=== PATIENT | male | born 1945 | race Caucasian/White ===

== ENCOUNTER 2016-12-04 10:31 | Emergency (ER) | payer MEDICARE ==
[~2016-12-04] VITALS: Ht 182.9 cm; Wt 92.1 kg
[~2016-12-04 10:31] MED LIST: AZIT1PAC7 PO
[2016-12-04 11:39] LABS: BASO % 1 % (0-3); EOS % 4 % (0-3); HEMATOCRIT 43.1 % (39.0-53.0); HEMOGLOBIN 14.4 g/dL (13.0-17.5); LYMPH # 1.1 x10^3/uL (1.0-4.8); LYMPH % 14 % (24-48); MEAN CORPUSCULAR HEMOGLOBIN 32 pg (25-35); MEAN CORPUSCULAR HGB CONC 33 g/dL (31-37); MEAN CORPUSCULAR VOLUME 95 fL (79-100); MONO % 8 % (0-9); NEUT % 74 % (31-73); PLATELET COUNT 101 x10^3/uL (140-400); RED BLOOD COUNT 4.55 x10^6/uL (4.30-5.70); WHITE BLOOD COUNT 7.6 x10^3/uL (4.0-11.0)
--- NOTE | 2016-12-04 11:45 | PHYS DOC ---
Past Medical History Past Medical History: Diverticulitis, Hypertension, Hypothyroid, Other Additional Past Medical Histor: FATTY LIVER,ENLARGED SPLEEN,LOW PLATELETS Past Surgical History: Other Additional Past Surgical Histo: HEMORRHOIDS,HERNIA,FISTULA Alcohol Use: Rarely Drug Use: None Adult General Chief Complaint Chief Complaint: FOOT INJURY PAIN HPI HPI Patient is a 71 year old male who presents with left foot pain starting last night. He denies any injury to the foot. He states that it feels swollen and warm with redness. He denies fever or pain or swelling in the left ankle or calf. He reports that he was told that he may have gout in the past. He applied AsperCream and IcyHot and soaked the foot in Epsom salts without relief. His PCP is Dr. Jr Greenwood. He saw Dr. Rodriguez for podiatry until his recent care home. Review of Systems Review of Systems Constitutional: Denies fever or chills. [] Musculoskeletal: Denies back pain or joint pain. Reports lateral left foot pain. Integument: Denies rash or skin lesions. Reports left foot swelling, redness, and warmth. Neurologic: Denies focal weakness or sensory changes. [] Allergies Allergies Allergies Coded Allergies Type Severity Reaction Last Updated Verified No Known Drug Allergies 04/09/16 No Physical Exam Physical Exam Constitutional: Well developed, well nourished, no acute distress, non-toxic appearance. [] HENT: Normocephalic, atraumatic, oropharynx moist. [] Eyes: PERRLA, EOMI, conjunctiva normal, no discharge. [] Skin: Warm, dry, no rash. There is mild erythema and warmth of the lateral aspect of the left foot dorsum. Extremities: Left lateral foot tenderness, ROM intact, minimal edema. 2+ pedal pulses. Less than 2 second capillary refill in the toes. Light touch sensation intact in the toes. There is no tenderness, swelling, redness, or warmth of the left ankle or calf. Neurologic: Alert and oriented X 3, normal motor function, normal sensory function, no focal deficits noted. [] Psychologic: Affect normal, judgement normal, mood normal. [] Current Patient Data Vital Signs Vital Signs Date Time Temp Pulse Resp B/P Pulse Ox O2 Delivery O2 Flow Rate FiO2 12/04/16 10:37 97.6 62 18 129/82 97 Room Air 97.6 Lab Values Laboratory Tests Test 12/04/16 11:30 White Blood Count 7.6x10^3/uL (4.0-11.0) Red Blood Count 4.55x10^6/uL (4.30-5.70) Hemoglobin 14.4g/dL (13.0-17.5) Hematocrit 43.1% (39.0-53.0) Mean Corpuscular Volume 95fL (79-100) Mean Corpuscular Hemoglobin 32pg (25-35) Mean Corpuscular Hemoglobin Concent 33g/dL (31-37) Red Cell Distribution Width 14.0% (11.5-14.5) Platelet Count 101x10^3/uL (140-400) L Neutrophils (%) (Auto) 74% (31-73) H Lymphocytes (%) (Auto) 14% (24-48) L Monocytes (%) (Auto) 8% (0-9) Eosinophils (%) (Auto) 4% (0-3) H Basophils (%) (Auto) 1% (0-3) Neutrophils # (Auto) 5.6x10^3uL (1.8-7.7) Lymphocytes # (Auto) 1.1x10^3/uL (1.0-4.8) Monocytes # (Auto) 0.6x10^3/uL (0.0-1.1) Eosinophils # (Auto) 0.3x10^3/uL (0.0-0.7) Basophils # (Auto) 0.0x10^3/uL (0.0-0.2) Sodium Level 143mmol/L (136-145) Potassium Level 4.5mmol/L (3.5-5.1) Chloride Level 105mmol/L (98-107) Carbon Dioxide Level 27mmol/L (21-32) Anion Gap 11 (6-14) Blood Urea Nitrogen 20mg/dL (8-26) Creatinine 1.4mg/dL (0.7-1.3) H Estimated GFR (Cockcroft-Gault) 50.0 BUN/Creatinine Ratio 14 (6-20) Glucose Level 99mg/dL (70-99) Uric Acid 8.3mg/dL (3.5-7.2) H Calcium Level 9.3mg/dL (8.5-10.1) Total Bilirubin 0.6mg/dL (0.2-1.0) Aspartate Amino Transferase (AST) 37U/L (15-37) Alanine Aminotransferase (ALT) 55U/L (16-63) Alkaline Phosphatase 100U/L (46-116) Total Protein 7.9g/dL (6.4-8.2) Albumin 4.1g/dL (3.4-5.0) Albumin/Globulin Ratio 1.1 (1.0-1.7) Laboratory Tests 12/04/16 11:30 Laboratory Tests 12/04/16 11:30 EKG EKG [] Radiology/Procedures Radiology/Procedures REASON: left foot pain, swelling, redness, atraumatic PROCEDURE: VENOUS LOWER EXTREMITY LEFT Clinical Indication: Left foot pain and swelling Technique: Study is dated December 04, 2016. Grayscale, color flow and spectral waveform analysis was performed of the left lower extremity with and without compression. Findings: There is normal compressibility of all visualized vein segments. No evidence of DVT is present on grayscale or color images. There is normal phasicity of waveform. There is normal augmentation. Impression: No evidence of deep vein thrombosis. Course & Med Decision Making Course & Med Decision Making Pertinent Labs and Imaging studies reviewed. (See chart for details) Patient is 31-year-old male who presents with atraumatic left foot pain starting last night. On exam, there is minimal edema with mild erythema and warmth. There is tenderness over the lateral foot. He is neurovascularly intact without evidence of compartment syndrome. There are no significant laboratory abnormalities. Uric acid is mildly elevated, nonspecific without previous value for comparison. DOES not show any evidence of DVT. He is discharged home with prescription for Keflex for possible early cellulitis, naproxen, and [place]. He is instructed to follow-up with his PCP in the next 2-3 days for reevaluation. Return precautions were discussed. He verbalizes understanding and agrees with plan. Dragon Disclaimer Dragon Disclaimer This electronic medical record was generated, in whole or in part, using a voice recognition dictation system. Departure Departure Impression: Primary Impression: Cellulitis of foot, left Disposition: 01 HOME, SELF-CARE Condition: STABLE Referrals: JR GREENWOOD MD (PCP) Patient Instructions: Cellulitis, [id number] Additional Instructions: Your ultrasound did not show any evidence of blood clot in the leg. There was no elevation of the white blood cell count. The uric acid level was mildly elevated. Please complete all of the prescribe antibiotics. Please take the prescribe anti-inflammatory medication. This will help with inflammation in the foot. Please take the prescribed pain medication as directed. Do not drive or operate heavy machinery while taking narcotic medications. Please follow up with your doctor in the next 2-3 days. Return to the emergency department if you have increased pain, redness, swelling , fever, or other new or concerning symptoms. Scripts Hydrocodone/Apap 5-325 ([place] 5-325 Tablet)1 Each Tablet1 Tab PO PRN Q6HRS PRN PAIN #20 TAB Prov:AMI RAMOS 12/04/16 Naproxen (Naprosyn)500 Mg Tablet1 Tab PO BID #20 TAB Prov:AMI RAMOS 12/04/16 Cephalexin (Keflex)500 Mg Capsule1 Cap PO BID #20 CAP Prov:AMI RAMOS 12/04/16 AMI RAMOS Dec 04, 2016 11:45
[2016-12-04 11:48] LABS: CALCIUM 9.3 mg/dL (8.5-10.1); CREATININE 1.4 mg/dL (0.7-1.3); POTASSIUM 4.5 mmol/L (3.5-5.1)
[2016-12-04 11:54] LABS: ALBUMIN 4.1 g/dL (3.4-5.0); ALBUMIN/GLOBULIN RATIO 1.1 (1.0-1.7); TOTAL BILIRUBIN 0.6 mg/dL (0.2-1.0); TOTAL PROTEIN 7.9 g/dL (6.4-8.2); URIC ACID 8.3 mg/dL (3.5-7.2)
--- NOTE | 2016-12-04 12:27 | RAD ---
Clinical Indication: Left foot pain and swelling Technique: Study is dated December 04, 2016. Grayscale, color flow and spectral waveform analysis was performed of the left lower extremity with and without compression. Findings: There is normal compressibility of all visualized vein segments. No evidence of DVT is present on grayscale or color images. There is normal phasicity of waveform. There is normal augmentation. Impression: No evidence of deep vein thrombosis.
[2016-12-04] MEDS ORDERED: HYDR-971 PO (12:35)
[2016-12-04] MEDS ORDERED: NAPR500T PO (12:35)
[2016-12-04] MEDS ORDERED: CEPH-264 PO (12:35)
[2016-12-04 12:51] VITALS: BP 155/76
== END 2016-12-04 12:52 | disposition home or self-care (01) ==
LOC: ER 10:31
DX: L03.116 Cellulitis of left lower limb (principal); E03.9 Hypothyroidism, unspecified; I10 Essential (primary) hypertension
CPT/HCPCS: 36415; 80053; 84550; 85027; 93971; 99285-25

== ENCOUNTER → 2016-12-14 | Outpatient (CLI) | payer MEDICARE ==
[2016-12-04 12:51] VITALS: BP 155/76
[~2016-12-14] MED LIST changes: +CEPH-264 PO; +CONTRAST GIVEN MC PRN; +HYDR-971 PO; +IOHEXOL 300 MG/ML 50 ML VIAL. IJ ONE; +IOPAMIDOL IV ONE; +NAPR500T PO
--- NOTE | 2016-12-14 11:49 | RAD ---
Indication open wound in the suprapubic area. The patient reports occasionally liquid material coming from an open wound in the suprapubic area, in the midline. The patient reports now however that the wound is closed. The area of concern was examined using a magnifying apparatus. A small indurated area was seen however no open tract was identified. No open wound, suggesting a fistulous tract, was identified.
== END | disposition home or self-care (01) ==
LOC: RAD 10:13
PROVIDERS: ATTEND Internal Medicine
DX: L98.8 Other specified disorders of the skin and subcutaneous tissue (principal); K63.2 Fistula of intestine; L02.211 Cutaneous abscess of abdominal wall
CPT/HCPCS: 73501; 76080

== ENCOUNTER 2018-08-22 11:12 | Emergency (ER) | payer MEDICARE ==
[~2018-08-22] VITALS: Ht 180.3 cm; Wt 95.3 kg
[~2018-08-22 11:12] MED LIST changes: -AZIT1PAC7 PO; +AZIT1PAC9 PO; -CONTRAST GIVEN MC PRN; +HYDR-3164 PO; -HYDR-971 PO; -IOHEXOL 300 MG/ML 50 ML VIAL. IJ ONE; -IOPAMIDOL IV ONE; +NAPR-683 PO; -NAPR500T PO
[2018-08-22 12:05] LABS: BILIRUBIN,URINE SMALL (NEG); CLARITY,URINE CLOUDY; COLOR,URINE AMBER; NITRITE,URINE POSITIVE (NEG); PH,URINE 5.5; PROTEIN,URINE 100 mg/dL (NEG-TRACE)
[2018-08-22] MEDS: IV NORMAL SALINE 1000ML BAG 1,000 ML IV ONE (12:16)
[2018-08-22] MEDS: TAMSULOSIN 0.4 MG CAP.ER.24H. PO ONE (12:17)
[2018-08-22 12:29] LABS: RBC,URINE >40 /HPF (0-2); WBC,URINE TNTC /HPF (0-4)
[2018-08-22 12:30] LABS: BACTERIA,URINE MODERATE /HPF (0-FEW); SQUAMOUS EPITHELIAL CELL,UR FEW /LPF
[2018-08-22 12:33] LABS: BASO % 0 % (0-3); EOS % 0 % (0-3); HEMATOCRIT 43.1 % (39.0-53.0); LYMPH # 0.4 x10^3/uL (1.0-4.8); LYMPH % 4 % (24-48); MEAN CORPUSCULAR HEMOGLOBIN 33 pg (25-35); MEAN CORPUSCULAR HGB CONC 35 g/dL (31-37); MEAN CORPUSCULAR VOLUME 94 fL (79-100); MONO # 0.7 x10^3/uL (0.0-1.1); MONO % 7 % (0-9); NEUT % 89 % (31-73); PLATELET COUNT 93 x10^3/uL (140-400); RED BLOOD COUNT 4.57 x10^6/uL (4.30-5.70); RED CELL DISTRIBUTION WIDTH 13.9 % (11.5-14.5); WHITE BLOOD COUNT 10.2 x10^3/uL (4.0-11.0)
[2018-08-22 12:41] LABS: CALCIUM 9.5 mg/dL (8.5-10.1); CREATININE 1.7 mg/dL (0.7-1.3); GFR 39.7; POTASSIUM 4.2 mmol/L (3.5-5.1)
[2018-08-22 12:47] LABS: ALBUMIN 4.1 g/dL (3.4-5.0); ALBUMIN/GLOBULIN RATIO 0.9 (1.0-1.7); TOTAL BILIRUBIN 1.5 mg/dL (0.2-1.0); TOTAL PROTEIN 8.9 g/dL (6.4-8.2)
[2018-08-22] MEDS: CIPROFLOXACIN 400MG PREMIX 200 ML IV SCH (13:09)
[2018-08-22 13:10] LABS: % BANDS 11 % (0-9); % BASOS 1 % (0-3); % EOS 1 % (0-5); % LYMPHS 3 % (24-48); % MONOS 7 % (0-10); % SEGS 77 % (35-66)
[2018-08-22 13:11] LABS: PLT ESTIMATE DECREASED (ADEQUATE)
[2018-08-22 13:30] VITALS: BP 132/75
[2018-08-22] MEDS ORDERED: CIPR500T94 PO (14:09)
--- NOTE | 2018-08-22 14:09 | PHYS DOC ---
Past Medical History Past Medical History: Diverticulitis, Hypertension, Hypothyroid, Renal Disease , Other Additional Past Medical Histor: FATTY LIVER,ENLARGED SPLEEN,LOW PLATELETS, CANCER REMOVED FROM KIDNEY Past Surgical History: Other Additional Past Surgical Histo: HEMORRHOIDS,HERNIA,FISTULA Alcohol Use: Rarely Drug Use: None Adult General Chief Complaint Chief Complaint: URINARY FREQUENCY HPI HPI Patient is a 73 year old male with history of hypertension, hypothyroidism, renal disease, who presents today complaining of urinary frequency, dysuria and feeling dehydrated for 2 days. Patient denies any fever. Denies any nausea, vomiting, denies any hematuria. He states he is currently being monitored closely by his own PCP for elevated liver enzymes as well as an increase in his kidney function numbers. He states he is already had a couple CTs done of the abdomen and pelvic which did show he has a spot on his liver. He states they were not able to do CT with IV contrast because of his kidney function. Review of Systems Review of Systems Constitutional: Denies fever or chills [] Eyes: Denies change in visual acuity, redness, or eye pain [] HENT: Denies nasal congestion or sore throat [] Respiratory: Denies cough or shortness of breath [] Cardiovascular: No additional information not addressed in HPI [] GI: Denies abdominal pain, nausea, vomiting, bloody stools or diarrhea [] : Reports dysuria, frequency, denies hematuria [] Musculoskeletal: Denies back pain or joint pain [] Integument: Denies rash or skin lesions [] Neurologic: Denies headache, focal weakness or sensory changes [] All other systems were reviewed and found to be within normal limits, except as documented in this note. Current Medications Current Medications Current Medications Medications (Trade) Dose Ordered Sig/Veronica Start Time Stop Time Status Last Admin Dose Admin Ciprofloxacin/ Dextrose 200 ml @ 200 mls/hr Q12HR 08/22/18 13:00 08/22/18 13:09 200 MLS/HR Sodium Chloride 1,000 ml @ 1,000 mls/hr 1X ONCE 08/22/18 12:00 08/22/18 12:59 DC 08/22/18 12:16 1,000 MLS/HR Tamsulosin HCl (Flomax) 0.4 mg 1X ONCE 08/22/18 12:00 08/22/18 12:01 DC 08/22/18 12:17 0.4 MG Allergies Allergies Allergies Coded Allergies Type Severity Reaction Last Updated Verified No Known Drug Allergies 04/09/16 No Physical Exam Physical Exam Constitutional: Well developed, well nourished, no acute distress, non-toxic appearance. [] HENT: Normocephalic, atraumatic, bilateral external ears normal, oropharynx moist, no oral exudates, nose normal. [] Eyes: PERRLA, EOMI, conjunctiva normal, no discharge. [] Neck: Normal range of motion, no tenderness, supple, no stridor. [] Cardiovascular:Heart rate regular rhythm, no murmur [] Lungs & Thorax: Bilateral breath sounds clear to auscultation [] Abdomen: Bowel sounds normal, soft, no tenderness, no masses, no pulsatile masses. [] Skin: Warm, dry, no erythema, no rash. [] Back: No tenderness, no CVA tenderness. [] Extremities: No tenderness, no cyanosis, no clubbing, ROM intact, no edema. [] Neurologic: Alert and oriented X 3, normal motor function, normal sensory function, no focal deficits noted. [] Psychologic: Affect normal, judgement normal, mood normal. [] Current Patient Data Vital Signs Vital Signs Date Time Temp Pulse Resp B/P (MAP) Pulse Ox O2 Delivery O2 Flow Rate FiO2 08/22/18 13:30 76 18 132/75 (94) 95 Room Air 08/22/18 11:45 98.2 98.2 Lab Values Laboratory Tests Test 08/22/18 11:55 08/22/18 12:20 Urine Collection Type Unknown Urine Color Lili Urine Clarity Cloudy Urine pH 5.5 Urine Specific [place] 1.020 Urine Protein 100 mg/dL (NEG-TRACE) Urine Glucose (UA) 250 mg/dL (NEG) Urine Ketones (Stick) Trace mg/dL (NEG) Urine Blood Large (NEG) Urine Nitrite Positive (NEG) Urine Bilirubin Small (NEG) Urine Urobilinogen Dipstick 1.0 mg/dL (0.2 mg/dL) Urine Leukocyte Esterase Large (NEG) Urine RBC >40 /HPF (0-2) Urine WBC Tntc /HPF (0-4) Urine Squamous Epithelial Cells Few /LPF Urine Transitional Epithelial Cells Few /LPF Urine Bacteria Moderate /HPF (0-FEW) Urine Mucus Mod /LPF White Blood Count 10.2 x10^3/uL (4.0-11.0) Red Blood Count 4.57 x10^6/uL (4.30-5.70) Hemoglobin 15.0 g/dL (13.0-17.5) Hematocrit 43.1 % (39.0-53.0) Mean Corpuscular Volume 94 fL (79-100) Mean Corpuscular Hemoglobin 33 pg (25-35) Mean Corpuscular Hemoglobin Concent 35 g/dL (31-37) Red Cell Distribution Width 13.9 % (11.5-14.5) Platelet Count 93 x10^3/uL (140-400) L Neutrophils (%) (Auto) 89 % (31-73) H Lymphocytes (%) (Auto) 4 % (24-48) L Monocytes (%) (Auto) 7 % (0-9) Eosinophils (%) (Auto) 0 % (0-3) Basophils (%) (Auto) 0 % (0-3) Neutrophils # (Auto) 9.0 x10^3uL (1.8-7.7) H Lymphocytes # (Auto) 0.4 x10^3/uL (1.0-4.8) L Monocytes # (Auto) 0.7 x10^3/uL (0.0-1.1) Eosinophils # (Auto) 0.0 x10^3/uL (0.0-0.7) Basophils # (Auto) 0.0 x10^3/uL (0.0-0.2) Segmented Neutrophils % 77 % (35-66) H Band Neutrophils % 11 % (0-9) H Lymphocytes % 3 % (24-48) L Monocytes % 7 % (0-10) Eosinophils % 1 % (0-5) Basophils % 1 % (0-3) Platelet Estimate Decreased (ADEQUATE) Sodium Level 137 mmol/L (136-145) Potassium Level 4.2 mmol/L (3.5-5.1) Chloride Level 100 mmol/L (98-107) Carbon Dioxide Level 27 mmol/L (21-32) Anion Gap 10 (6-14) Blood Urea Nitrogen 16 mg/dL (8-26) Creatinine 1.7 mg/dL (0.7-1.3) H Estimated GFR (Cockcroft-Gault) 39.7 BUN/Creatinine Ratio 9 (6-20) Glucose Level 182 mg/dL (70-99) H Calcium Level 9.5 mg/dL (8.5-10.1) Total Bilirubin 1.5 mg/dL (0.2-1.0) H Aspartate Amino Transferase (AST) 65 U/L (15-37) H Alanine Aminotransferase (ALT) 89 U/L (16-63) H Alkaline Phosphatase 112 U/L (46-116) Total Protein 8.9 g/dL (6.4-8.2) H Albumin 4.1 g/dL (3.4-5.0) Albumin/Globulin Ratio 0.9 (1.0-1.7) L Lipase 236 U/L (73-393) Laboratory Tests 08/22/18 12:20 Laboratory Tests 08/22/18 12:20 EKG EKG [] Radiology/Procedures Radiology/Procedures [] Course & Med Decision Making Course & Med Decision Making Pertinent Labs and Imaging studies reviewed. (See chart for details) This is a 73-year-old male patient presenting to the ED today with frequency and dysuria for 2 days also feeling dehydrated. Urine analysis was noted for infection, CBC with normal WBC, CMP with creatinine of 1.7 BUN 16, AST 65 ALT 89 patient states his creatinine, AST and ALT levels have been elevated and his doctor is following up with them. Patient was given 1 L of fluid as well as Cipro. He states is feeling much better. He was discharged with Cipro. Instructed follow up with his own PCP in the course of this week or next week. Provided return precautions and discharged in stable condition. Dragon Disclaimer Dragon Disclaimer This electronic medical record was generated, in whole or in part, using a voice recognition dictation system. Departure Departure Impression: Primary Impression: Urinary tract infection Additional Impressions: Acute on chronic renal failure Transaminitis Disposition: 01 HOME, SELF-CARE Condition: STABLE Referrals: JR GREENWOOD MD (PCP) Follow up with your doctor in the course of this week or next week Patient Instructions: Urinary Tract Infection Additional Instructions: You were evaluated in the emergency room and were noted to have urinary tract infection. We put you on antibiotics, ensure you complete them. Follow-up with your doctor in the next 1-2 weeks. Come back to the ED at any point symptoms worsen. Scripts Ciprofloxacin Hcl (CIPRO) 500 Mg Tablet 1 TAB PO BID, #14 TAB Prov: JAH PARKER APRN 08/22/18 Problem Qualifiers Primary Impression: Urinary tract infection Urinary tract infection type: site unspecified Hematuria presence: without hematuria Qualified Codes: N39.0 - Urinary tract infection, site not specified Additional Impressions: Acute on chronic renal failure Acute renal failure type: unspecified Chronic kidney disease stage: unspecified stage Qualified Codes: N17.9 - Acute kidney failure, unspecified; N18.9 - Chronic kidney disease, unspecified JAH PARKER APRN Aug 22, 2018 14:09
== END 2018-08-22 14:22 | disposition home or self-care (01) ==
LOC: ER 11:12
DX: N39.0 Urinary tract infection, site not specified (principal); R74.0 Nonspecific elevation of levels of transaminase and lactic acid dehydrogenase [LDH]; N17.9 Acute kidney failure, unspecified; N18.9 Chronic kidney disease, unspecified; I12.9 Hypertensive chronic kidney disease with stage 1 through stage 4 chronic kidney disease, or unspecified chronic kidney disease; E86.0 Dehydration; E03.9 Hypothyroidism, unspecified; Z85.528 Personal history of other malignant neoplasm of kidney
CPT/HCPCS: 36415; 80053; 81001; 83690; 85007; 85025; 87086; 96361; 96365; 99283; J0744; J7030